=== PATIENT | female | born 1985 | race American Indian/Alaskan Native ===

== ENCOUNTER 2017-01-05 14:37 | Outpatient (CLI) | payer OTHER ==
[2017-01-05 17:48] VITALS: BP 114/76
[2017-01-05] MEDS ORDERED: TYLENOL PO ONE (18:06)
== END 2017-01-05 18:14 | disposition home or self-care (01) ==
LOC: TRG 14:37
PROVIDERS: ATTEND Obstetrics & Gynecology
DX: O47.03 False labor before 37 completed weeks of gestation, third trimester (principal); Z3A.35 35 weeks gestation of pregnancy
CPT/HCPCS: 59025

== ENCOUNTER 2017-01-06 11:37 | Outpatient (CLI) | payer OTHER ==
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
[2017-01-06 15:43] VITALS: BP 120/80
== END 2017-01-06 16:05 | disposition home or self-care (01) ==
LOC: ED 11:37 → EDSTATUS 14:05 → TRG 14:06 → LD 14:08 → TRG 16:05
PROVIDERS: ATTEND Obstetrics & Gynecology
DX: O47.03 False labor before 37 completed weeks of gestation, third trimester (principal); V89.2XXD Person injured in unspecified motor-vehicle accident, traffic, subsequent encounter; X58.XXXD Exposure to other specified factors, subsequent encounter; Z3A.34 34 weeks gestation of pregnancy
CPT/HCPCS: 59025

== ENCOUNTER 2017-02-02 15:52 | Outpatient (CLI) | payer OTHER ==
[2017-02-02 16:31] VITALS: BP 120/73
[2017-02-02] MEDS ORDERED: LACTATED RINGERS 500 ML IV ONE ×2 (17:00→17:27)
[2017-02-02 17:06] LABS: Bilirubin,Urine NEG (Negative); Blood,Urine NEG (Negative); Ketones,Urine NEG (Negative); Leukocyte Esterase,Urine NEG (Negative); Mucus,Urine 1+ /HPF; Nitrite,Urine NEG (Negative); Protein,Urine <15 mg/dL mg/dL (Negative); Urobilinogen,Urine < 2.0 mg/dL (<2.0); WBC,Urine < 1.0 /HPF (0.0-6.0)
[2017-02-02] MEDS ORDERED: VISTARIL PO PRN (17:27)
== END 2017-02-02 17:40 | disposition home or self-care (01) ==
LOC: TRG 15:52
PROVIDERS: ATTEND Obstetrics & Gynecology
DX: O62.9 Abnormality of forces of labor, unspecified (principal); O26.893 Other specified pregnancy related conditions, third trimester; Z3A.37 37 weeks gestation of pregnancy
CPT/HCPCS: 59025; 81001; Q0177

== ENCOUNTER 2017-02-08 11:03 | Outpatient (CLI) | payer OTHER ==
[2017-02-08 11:58] LABS: Bacteria,Urine 1+ /HPF (Negative); Bilirubin,Urine NEG (Negative); Blood,Urine NEG (Negative); Ketones,Urine NEG (Negative); Leukocyte Esterase,Urine NEG (Negative); Mucus,Urine 1+ /HPF; Nitrite,Urine NEG (Negative); Protein,Urine <15 mg/dL mg/dL (Negative); Urobilinogen,Urine < 2.0 mg/dL (<2.0)
[2017-02-08 12:01] VITALS: BP 119/82
[2017-02-08] MEDS ORDERED: VISTARIL PO ONE (12:15)
== END 2017-02-08 12:22 | disposition home or self-care (01) ==
LOC: TRG 11:03
PROVIDERS: ATTEND Obstetrics & Gynecology
DX: O47.03 False labor before 37 completed weeks of gestation, third trimester (principal); Z3A.39 39 weeks gestation of pregnancy
CPT/HCPCS: 59025; 81001; Q0177

== ENCOUNTER 2017-02-14 20:43 | Inpatient (IN) | payer OTHER ==
[2017-02-14] MEDS ORDERED: XYLOCAINE 2% INFILTRATI ONE (22:46)
[2017-02-14] MEDS ORDERED: ZOFRAN IV PRN (22:46)
[2017-02-14] MEDS ORDERED: BRETHINE SUB-Q PRN (22:46)
[2017-02-14] MEDS ORDERED: SUBLIMAZE IV PRN (22:46)
[2017-02-14] MEDS ORDERED: ePHEDrine SULFATE IV PRN (22:46)
[2017-02-14] MEDS ORDERED: BRETHINE IVP PRN (22:46)
[2017-02-14] MEDS ORDERED: STADOL IV PRN (22:46)
[2017-02-14] MEDS ORDERED: MINERAL OIL PO PRN (22:46)
[2017-02-14] MEDS ORDERED: PITOCin/NS 20 UNIT/1000ML DRIP 20 UNITS/1,000 ML BAG IV SCH (23:00)
[2017-02-14] MEDS ORDERED: PITOCin/NS 30 UNIT/500ML 30 UNITS/500 ML BAG IV SCH (23:00)
[2017-02-14 23:59] LABS: Hematocrit 42.1 % (30.3-42.9); Hemoglobin 14.3 gm/dl (10.1-14.3); Mean Corpuscular HGB Conc 34 % (30-34); Mean Corpuscular Hemoglobin 32 pg (28-32); Mean Corpuscular Volume 92 fl (79-97); Platelet Count 206 K/mm3 (140-440); Red Blood Count 4.55 M/mm3 (3.65-5.03); Red Cell Distribution Width 13.9 % (13.2-15.2); White Blood Count 9.1 K/mm3 (4.5-11.0)
[2017-02-15] MEDS: LACTATED RINGERS 1,000 ML IV SCH ×5 (02:06→14:33)
[2017-02-15] MEDS ORDERED: ePHEDrine SULFATE ONE (11:26)
[2017-02-15] MEDS ORDERED: PEPCID IV NR (12:00)
[2017-02-15] MEDS ORDERED: GARAMYCIN 200 MG in NACL 0.9% 100 ML IV SCH (12:00)
[2017-02-15] MEDS ORDERED: CLEOCIN 600 MG/50 mL 600 MG/50 ML BAG IV NR (12:00)
[2017-02-15] MEDS ORDERED: REGLAN IV NR (12:00)
[2017-02-15] MEDS ORDERED: ePHEDrine SULFATE IV PRN (12:01)
[2017-02-15] MEDS ORDERED: NARCAN 2 MG/2 ML IV PRN (12:01)
--- NOTE | 2017-02-15 12:01 | Anesthesia Consultation ---
Anesthesia Consult and Med Hx Date of service: 02/15/17 - Airway Anesthetic Teeth Evaluation: Good ROM Head & Neck: Adequate Mental/Hyoid Distance: Adequate Mallampati Class: Class II Intubation Access Assessment: Good - Pulmonary Exam CTA: Yes - Cardiac Exam Cardiac Exam: No Murmur - Pre-Operative Health Status ASA Pre-Surgery Classification: ASA2 Proposed Anesthetic Plan: Epidural - Pulmonary Hx Asthma: No COPD: No Hx Pneumonia: No - Cardiovascular System Hx Hypertension: No - Central Nervous System Hx Seizures: No Hx Psychiatric Problems: No - Endocrine Hx Renal Disease: No Hx End Stage Renal Disease: No Hx Hypothyroidism: No Hx Hyperthyroidism: No - Hematic Hx Anemia: No Hx Sickle Cell Disease: No - Other Systems Hx Alcohol Use: No
[2017-02-15] MEDS ORDERED: WATER FOR IRRIG STERILE IR ONE (12:12)
[2017-02-15] MEDS ORDERED: NACL 0.9% IR ONE (12:12)
[2017-02-15] MEDS ORDERED: GARAMYCIN/NS 80 MG/100 ML 100 ML IV ONE ×2 (12:18)
[2017-02-15] MEDS ORDERED: CLEOCIN IV ONE (12:18)
[2017-02-15] MEDS ORDERED: REGLAN ONE (12:19)
[2017-02-15] MEDS ORDERED: PEPCID IV ONE (12:19)
[2017-02-15] MEDS ORDERED: CLEOCIN 600 MG/50 mL 600 MG/50 ML BAG IV ONE (12:23)
[2017-02-15] MEDS ORDERED: MORPHINE ONE ×2 (12:30)
[2017-02-15] MEDS ORDERED: XYLOCAINE MPF 2% ONE (12:47)
[2017-02-15] MEDS ORDERED: fentaNYL-BUPIV 2 MCG/ML-0.125% 200 MCG/100 ML BAG EPIDURAL SCH (13:00)
--- NOTE | 2017-02-15 13:07 | History and Physical Report ---
History of Present Illness Date of examination: 02/14/17 Date of admission: 02/14/17 20:43 Chief complaint: I'm overdue History of present illness: Patient is a 31 year old who presents at 40.2 weeks for induction of labor due to post-dates, gestational hypertension and obesity. She has had an uncomplicated course. And entered into care at approximately 8 weeks gestation. She received care at [facility]. Past History Past Medical History: other (pcos) Past Surgical History: no surgical history Family/Genetic History: heart disease, hypertension, stroke Social history: - Obstetrical History Expected Date of Delivery: 02/12/17 Actual Gestation: 40 Week(s) 3 Day(s) : 1 Medications and Allergies Allergies Allergy/AdvReac Type Severity Reaction Status Date / Time Penicillins Allergy Severe Itching Verified 01/05/17 18:03 Sulfa (Sulfonamide Allergy Severe Vomiting Verified 01/05/17 18:04 Antibiotics) Active Meds: Active Medications Butorphanol Tartrate (Stadol) 2 mg IV Q2H PRN PRN Reason: Pain , Severe (7-10) Fentanyl (Sublimaze) 100 mcg IV Q2H PRN PRN Reason: Labor Pain Last Admin: 02/15/17 08:18 Dose: 100 mcg Lactated Ringer's (Lactated Ringers) 1,000 mls @ 125 mls/hr IV DIRECT GARO Last Admin: 02/15/17 11:22 Dose: 125 mls/hr Oxytocin/Sodium Chloride (Pitocin/Ns 20 Unit/1000ml Drip) 20 units in 1,000 mls @ 125 mls/hr IV DIRECT GARO Oxytocin/Sodium Chloride (Pitocin/Ns 30 Unit/500ml) 30 units in 500 mls @ 2 mls /hr IV TITR GARO; 2 MILLIUNITS/MIN PRN Reason: Protocol Last Titration: 02/15/17 09:36 Dose: 10 milliunits/min, 10 mls/hr Fentanyl/Bupivacaine/Sodium Chlor (Fentanyl-Bupiv 2 Mcg/Ml-0.125%) 200 mcg in 100 mls @ 12 mls/hr EPIDURAL TITR GARO PRN Reason: Protocol Mineral Oil (Mineral Oil) 30 ml PO QHS PRN PRN Reason: Constipation Ondansetron HCl (Zofran) 4 mg IV Q8H PRN PRN Reason: Nausea And Vomiting Last Admin: 02/15/17 09:28 Dose: 4 mg Review of Systems All systems: negative Genitourinary: pelvic pain - Vital Signs Vital signs: Vital Signs Pulse BP 94 H 124/74 02/14/17 22:57 02/14/17 22:57 Temp Pulse Resp BP Pulse Ox 97.6 F 116 H 20 122/49 87 02/15/17 07:05 02/15/17 12:04 02/15/17 08:18 02/15/17 12:04 02/15/17 12:04 - Physical Exam Breasts: Cardiovascular: Regular rate, Normal S1, Normal S2 Lungs: Positive: Clear to auscultation, Normal air movement Abdomen: Positive: normal appearance, soft, normal bowel sounds. Negative: distention, tenderness Genitourinary (Female): Positive: normal external genitalia, normal perenium Vulva: both: normal Vagina: Positive: normal moisture. Negative: discharge Cervix: Negative: lesion, discharge Uterus: Positive: normal size, normal contour Adnexa: both: normal Anus/Rectum: Positive: normal perianal skin, heme negative. Negative: rectal mass, hemorrhoids Extremities: Deep Tendon Reflex Grade: Normal +2 - Obstetrical FHR: auscultation normal Cervical Dilatation: 1 Cervical Effacement Percentage: 50 station: 3 Results Result Diagrams: 02/14/17 23:45 All other labs normal. Assessment and Plan IUP at 40-2/7 weeks here for induction of labor. Will admit to labor and delivery. Will begin Pitocin augmentation. Anticipate .
--- NOTE | 2017-02-15 13:08 | Event Note ---
Date: 02/15/17 The patient progressed to approximately 7 cm dilated and 100% effaced. She received an epidural. After the epidural she had marked hypotension which cause subsequent heart bradycardia to the 60s. The decision was then made to proceed with an emergency section
--- NOTE | 2017-02-15 13:22 | Operative Report ---
Operative Report Operative Report: The operative report for patient Deep Waldron Date of service 02/15/2017 Preoperative diagnosis: Intrauterine at 40-2/7 weeks 2. bradycardia Postoperative diagnosis: Same Procedure: Primary low transverse section Surgeon: Dr. Kasia Harris EBL: 900 Urine output: 150 IV fluids: 800 mL Findings: Viable male in the vertex occiput posterior position. Weight 7 lbs. 14 oz. 3576 g Apgars 9 and 9. Otherwise normal pelvic anatomy Specimens: None Complications: None Procedure: The patient was admitted to the OR with IV running and in place. She was properly identified as herself. Her spinal had been placed in the room and she was already under the effects of anesthesia upon entry into the OR. She was placed in the dorsal supine position with a leftward tilt. A Richardson catheter was inserted. She was then prepped and draped in the normal sterile fashion. An Allis test was used to confirm adequate anesthesia. Once confirmed , the incision was made with the scalpel and carried to the underlying fascia using the scalpel and the Bovie. The fascia was incised in the midline and incision was extended bilaterally using the curved Read scissors. The fascia was then dissected from the underlying rectus muscles in a series of sharp and blunt dissection using the Read scissors. Muscles were in the in the midline sharply using Metzenbaum scissors and the peritoneum was entered into bluntly using the surgeon's fingers. A bladder blade was then placed into the incision to protect the bladder. Following this the bladder flap was created. Hysterotomy incision was then made in the scalpel. Once near the empty amniotic sac was ruptured for clear fluid. The infant was then delivered in the occiput posterior position. His mouth and nose were suctioned on the field. The cord was clamped and cut and he was handed to the waiting NICU personnel. The uterus was then exteriorized and cleared of all clots and debris. The hysterotomy incision was then closed in a running locked fashion using 0 Vicryl. The abdomen was then copiously irrigated with warm normal saline. Following this the uterus was replaced into the abdominal cavity. At this point the muscles were reapproximated in the midline using individual sutures of 0 Vicryl. Following this the fascia was closed in a running fashion using 0 Vicryl. Tissue was then copiously irrigated. A retention suture was placed in the subcuticular fat. Skin was closed in a running fashion using 3-0 Monocryl. The sponge lap needle and attention counts were correct 2. The patient tolerated the procedure well. She was taken to recovery in stable condition.
[2017-02-15] MEDS ORDERED: DIPRIVAN 10 MG/ML IV ONE (13:37)
[2017-02-15] MEDS ORDERED: KETALAR ONE (13:38)
[2017-02-15] MEDS ORDERED: VERSED ONE (14:14)
[2017-02-15] MEDS ORDERED: LACTATED RINGERS 1,000 ML IV SCH (15:00)
[2017-02-15] MEDS ORDERED: LANSINOH TP PRN (16:44)
[2017-02-15] MEDS ORDERED: PERCOCET 5/325 PO PRN (16:44)
[2017-02-15] MEDS ORDERED: TUCKS PAD TP PRN (16:44)
[2017-02-15] MEDS ORDERED: SENOKOT PO PRN (16:44)
[2017-02-15] MEDS ORDERED: NARCAN 0.4 MG/1 ML IV PRN (16:44)
[2017-02-15] MEDS ORDERED: D5LR 1,000 ML IV SCH (16:44)
[2017-02-15] MEDS ORDERED: MYLICON PO PRN (16:44)
[2017-02-15] MEDS ORDERED: PITOCin/NS 20 UNIT/1000ML DRIP 20 UNITS/1,000 ML BAG IV SCH (16:44)
[2017-02-15] MEDS ORDERED: SODIUM CHLORIDE FLUSH SYRINGE 10 ML IV NR (16:44)
[2017-02-15] MEDS ORDERED: ZOFRAN IV PRN (16:44)
[2017-02-15] MEDS ORDERED: MORPHINE IV PRN (16:44)
[2017-02-15] MEDS ORDERED: ANUCORT-HC PR PRN (16:44)
[2017-02-16 02:30] LABS: Hematocrit 40.7 % (30.3-42.9); Hemoglobin 13.6 gm/dl (10.1-14.3)
[2017-02-16] MEDS: MOTRIN PO PRN ×3 (05:41→21:44)
[2017-02-16] MEDS ORDERED: PRENATAL VITAMIN PO SCH (10:00)
--- NOTE | 2017-02-16 15:37 | Progress Note ---
Subjective - Subjective Date of service: 02/16/17 Interval history: Patient is a 31 year old who presents at 40.2 weeks for induction of labor due to post-dates, gestational hypertension and obesity. She has had an uncomplicated course. And entered into care at approximately 8 weeks gestation. She received care at [facility]. Objective - Vital Signs Latest vital signs: Vital Signs Temp Pulse Resp BP 02/16/17 12:03 98.6 F 80 18 100/54 02/16/17 08:19 98.7 F 89 16 114/58 02/16/17 04:10 98.0 F 93 H 20 91/53 02/16/17 00:00 98.4 F 90 20 95/45 02/15/17 20:20 98.2 F 85 20 83/39 Intake and Output 02/16/17 02/16/17 02/16/17 06:59 14:59 22:59 Intake Total 240 480 Output Total 1700 Balance -1460 480 Intake: Oral 240 480 Output: Urine 1700 Indwelling Catheter 600 Void 1100 Other: Total, Intake Amount 240 480 Total, Output Amount 400 # Voids Void 3 1
--- NOTE | 2017-02-16 15:41 | Progress Note ---
Subjective Date of service: 02/16/17 Interval history: 1st POD after Patient is in the bed, relatively comfortable. Pain is well controlled with pain meds. Ambulated well. No residual neurological deficit. No anesthesia complications Objective - Constitutional Vitals: Vital Signs - 12hr 02/16/17 02/16/17 02/16/17 04:10 08:19 12:03 Temperature 98.0 F 98.7 F 98.6 F Pulse Rate [ 93 H 89 80 Left From Monitor] Respiratory 20 16 18 Rate Blood Pressure 91/53 114/58 100/54 [Left Arm] - Labs CBC & Chem 7: 02/16/17 01:27
[2017-02-17] MEDS: MOTRIN PO PRN (08:08)
--- NOTE | 2017-02-17 10:12 | Discharge Summary ---
Providers - Providers Date of Admission: 02/14/17 20:43 Date of discharge: 02/17/17 Attending physician: PAVAN LEGER Primary care physician: PAVAN LEGER Hospitalization Reason for admission: induction of labor Delivery: Procedure: primary low transverse Episiotomy: none Laceration: none Incision: normal, dry, intact complications: none Discharge diagnosis: IUP at term delivered baby: male Hospital course: unremarkable Condition at discharge: Good Disposition: DC-01 TO HOME OR SELFCARE Plan - Discharge Medications Prescriptions: Docusate Sodium [Colace] 100 mg PO BID PRN #60 capsule PRN Reason: Constipation Ibuprofen [Motrin] 800 mg PO Q8HR PRN #50 tablet PRN Reason: Pain Oxycodone HCl/Acetaminophen [Percocet 7.5/325 mg] 1 each PO Q6HR PRN #50 tablet PRN Reason: Pain - Provider Discharge Summary Activity: routine, no sex for 6 weeks, no heavy lifting 4 weeks Diet: routine Instructions: routine Additional instructions: [] Smoking cessation referral if applicable(refer to patient education folder for contact #) [] Refer to [facility]'s [facility] Booklet Call your doctor immediately for: * Fever > 100.5 * Heavy vaginal bleeding ( >1 pad per hour) * Severe persistent headache * Shortness of breath * Reddened, hot, painful area to leg or breast * Drainage or odor from incision. * Keep incision clean and dry at all times and follow doctor's instructions regarding bathing/showering - Follow up plan Follow up: PAVAN LEGER MD [Primary Care Provider] - 14 Days
[2017-02-17 13:10] VITALS: BP 119/61
== END 2017-02-17 13:45 | disposition home or self-care (01) | DRG 765 ==
LOC: APU 20:43 → LD 20:56 → OB 02-15 15:59
PROVIDERS: ADMIT Obstetrics & Gynecology; ATTEND Obstetrics & Gynecology
PROC: 10D00Z1 Extraction of Products of Conception, Low, Open Approach (ICD-10-PCS; principal; 2017-02-15)
DX: O48.0 Post-term pregnancy (principal); Z68.42 Body mass index [BMI] 45.0-49.9, adult; O13.4 Gestational [pregnancy-induced] hypertension without significant proteinuria, complicating childbirth; O99.214 Obesity complicating childbirth; O76 Abnormality in fetal heart rate and rhythm complicating labor and delivery; E66.9 Obesity, unspecified; Z3A.40 40 weeks gestation of pregnancy; Z37.0 Single live birth; Z88.0 Allergy status to penicillin; Z88.2 Allergy status to sulfonamides
CPT/HCPCS: 36415; 85014; 85018; 85027; 86850; 86900; 86901; 99211; G0463; J0595; J1580; J2250; J2270; J2405; J2590; J2704; J2765; J3010; J7120

== ENCOUNTER → 2018-12-05 | Outpatient (CLI) | payer OTHER | END | disposition home or self-care (01) | LOC: SLR 11:00 | PROVIDERS: ATTEND Internal Medicine Cardiovascular Disease | DX: G47.33 Obstructive sleep apnea (adult) (pediatric) (principal); R40.0 Somnolence; R06.83 Snoring; E66.9 Obesity, unspecified | CPT/HCPCS: 95811 ==